=== PATIENT | male | born 1980 | race Caucasian/White ===

== ENCOUNTER 2023-08-17 16:08 | Observation (INO) ==
--- NOTE | 2023-08-17 16:59 | DR.N/VMALE ---
HPI Time Seen Time Seen by Provider: 08/17/23 16:58 Primary Care Physician Primary Care Physician: Neyda Ybarra Complaints Chief Complaint Doctors Comments: 42-year-old male presents for evaluation. Developed illness early this AM, around 0130. Started with several episodes of nausea and vomiting. Was vomiting for several hours.. Took some oral Pepto- Bismol, vomited ground like material shortly thereafter, about 3 minutes later. Was also having several episodes of diarrhea, no black stools noted. Having generalized weakness, no fevers or chills, no URI symptoms. Has been having reflux episodes over the past several weeks, used to be on Nexium in the past. Has not been helped by Prilosec. No history of peptic ulcer disease, does not take nonsteroidal anti-inflammatory meds. Had his gallbladder taken out by Dr. Feng in the past. Having low back discomfort, throbbing headache. Chief Complaint:: Pt c/o vomitting, "I think I'm dehydrated", c/o headache like "my head is about to split wide open". Pt states sx started around 130 this AM. Last time pt vomitted (about an hour ago) he states it was "like coffee deidre unds"; he called PCP ofc and was advised to come to ER d/t "could be internal bleeding". Pt states he had diarrhea last night, none today. Pt states he has LLQ abdominal pain Self Treatment fo Chief Complaint: tylenol early this AM for headache COVID-19 Coronavirus risk:travel/contact w/high risk person: No Has patient experienced Coronavirus symptoms: No Reviewed Nurses Notes Reviewed: Yes Source History Provided: Patient Mode of Arrival Mode of Arrival: Ambulatory Timing Onset of Chief Complaint: 08/17/23 PMH PMH Past Medical History: No Past Surgical History: Yes Surgical History: Cholecystectomy and Ortho Surgery Family History History of Family Medical Conditions: Yes Family Medical History: [place] Social History Does patient currently use any type of tobacco product: No Does any household member use tobacco: No Alcohol Use: None Do you use any recreational Drugs:: No Lives With: Spouse and Family Lives Where: Home Travel Risk Coronavirus risk:travel/contact w/high risk person: No Has patient experienced Coronavirus symptoms: No Infectious screening Have you traveled outside the country in the last 6 months?: No Isolation: Standard ROS Review of Systems Constitutional: Weakness Eyes: No Symptoms Reported ENTM: No Symptoms Reported Respiratoy: No Symptoms Reported Cardiovascular: No Symptoms Reported Gastrointestinal/Abdominal: See HPI Genitourinary: No Symptoms Reported Neurological: Headache Musculoskeletal: Back Pain Integumentary: No Symptoms Reported Hematologic/Lymphatic: No Symptoms Reported All Other Systems: Reviewed and Negative PE Vital Signs Vitals: Vital Signs Temperature 98.1 F Pulse Rate 95 Respiratory Rate 20 Respiratory Rate 18 Blood Pressure 132/77 O2 Sat by Pulse Oximetry 95 General General Appearance: Alert and In No Apparent Distress Eyes Eye exam: PERRL and EOMI ENT ENT Exam: Normal Oropharynx and Mucous Membranes Moist Neck Neck Exam: Normal Inspection Respiratory Respiratory Exam: Normal Lung Sounds Bilat; negative Accessory Muscle Use or Respiratory Distress Cardiovascular Cardiovascular Exam: Regular Rate, Normal Rhythm and Normal Heart Sounds Abdominal Exam Abdominal Exam: Normal Bowel Sounds and Soft; negative Tenderness, Guarding or Rebound Extremities Extremities Exam: Normal Inspection Back Back Exam: Normal Inspection Neurologic Neurological Exam: Alert, Oriented X3 and CN II-XII Intact; negative Motor Sensory Deficit Skin Skin Exam: Warm and Dry COURSE Treatment Treatment: 42-year-old male with vomiting diarrhea since early this a.m.. Past episode of vomiting was coffee-ground like material. Took Pepto-Bismol p.o. shortly prior to that episode. Workup initiated. Patient given IV fluids, IV Protonix/Zofran. Complaining of headache, given IV Dilaudid, 1 mg. 1839 -Labs acceptable.. pt resting after the medicine, no active vomiting here. Pt was seen by Dr Ford here in the ER. He will admit the pt, and plan on EGD in the am. ROR Labs Reviewed Laboratory Results Reviewed?: Yes 08/17/23 17:12 08/17/23 17:12 Laboratory: WBC 9.8 X10^3/uL (3.6-10.0) 08/17/23 17:12 RBC 5.39 X10^6/uL (4.7-6.0) 08/17/23 17:12 Hgb 15.9 g/dL (13.5-18.0) 08/17/23 17:12 Hct 46.5 % (42.0-54.0) 08/17/23 17:12 MCV 86.3 fL (80.0-100.0) 08/17/23 17:12 MCH 29.4 pg (27.0-34.0) 08/17/23 17:12 MCHC 34.1 g/dL (33.0-35.0) 08/17/23 17:12 RDW 13.9 % (11.6-16.5) 08/17/23 17:12 Plt Count 199 X10^3/uL (150.0-450.0) 08/17/23 17:12 MPV 8.4 fL (7.4-11.0) 08/17/23 17:12 Neut % (Auto) 88.0 % (42.0-75.0) H 08/17/23 17:12 Lymph % (Auto) 7.0 % (21.0-51.0) L 08/17/23 17:12 [place] % (Auto) 4.8 % (0.0-13.0) 08/17/23 17:12 Eos % (Auto) 0.1 % (0.9-2.9) L 08/17/23 17:12 Baso % (Auto) 0.1 % (0.2-1.0) L 08/17/23 17:12 Neut # (Auto) 8.6 x10^3/uL (2.2-4.8) H 08/17/23 17:12 Lymph # (Auto) 0.7 X10^3/uL (1.3-2.9) L 08/17/23 17:12 [place] # (Auto) 0.5 x10^3/uL (0.3-0.8) 08/17/23 17:12 Eos # (Auto) 0.0 x10^3/uL (0.0-0.2) 08/17/23 17:12 Baso # (Auto) 0.0 X10^3/uL (0.0-0.1) 08/17/23 17:12 Absolute Nucleated RBC 0.1 /100WBC 08/17/23 17:12 PT 15.1 SECONDS (11.8-14.3) 08/17/23 17:12 INR Target Range - 08/17/23 17:12 INR 1.21 (0.8-1.3) 08/17/23 17:12 APTT 25.8 SECONDS (22.9-36.5) 08/17/23 17:12 PTT Comment - 08/17/23 17:12 Sodium 138 mmol/L (136-145) 08/17/23 17:12 Corrected Sodium TNP 08/17/23 17:12 Potassium 4.2 mmol/L (3.5-5.1) 08/17/23 17:12 Chloride 100 mmol/L (98-107) 08/17/23 17:12 Carbon Dioxide 27.3 mmol/L (21-32) 08/17/23 17:12 BUN 18 mg/dL (7-18) 08/17/23 17:12 Creatinine 1.41 mg/dL (0.70-1.30) H 08/17/23 17:12 Est GFR (MDRD) Af Amer > 60 (>60) 08/17/23 17:12 Est GFR (MDRD) Non-Af 59 (>60) 08/17/23 17:12 Glucose 101 mg/dL (65-99) H 08/17/23 17:12 Calcium 8.9 mg/dL (8.5-10.1) 08/17/23 17:12 Corrected Calcium TNP 08/17/23 17:12 Total Bilirubin 1.00 mg/dL (0.2-1.0) 08/17/23 17:12 AST 31 Units/L (15-37) 08/17/23 17:12 ALT 39 Units/L (12-78) 08/17/23 17:12 Alkaline Phosphatase 99 Units/L (46-116) 08/17/23 17:12 Total Protein 8.3 g/dL (6.4-8.2) H 08/17/23 17:12 Albumin 3.9 g/dL (3.4-5.0) 08/17/23 17:12 Globulin 4.4 g/dL (2.5-4.5) 08/17/23 17:12 Albumin/Globulin Ratio 0.9 Ratio (1.1-2.1) L 08/17/23 17:12 Lipase 32 Units/L (16-77) 08/17/23 17:12 Specimen Type Clean catch urine 08/17/23 16:35 Urine Color Dark yellow (YELLOW) 08/17/23 16:35 Urine Appearance Clear (CLEAR) 08/17/23 16:35 Urine pH 6.0 (5.0 - 8.0) 08/17/23 16:35 Ur Specific [place] 1.020 (1.000-1.030) 08/17/23 16:35 Urine Protein 2+ (NEGATIVE) 08/17/23 16:35 Urine Glucose (UA) Negative (NEGATIVE) 08/17/23 16:35 Urine Ketones Negative (NEGATIVE) 08/17/23 16:35 Urine Blood Negative (NEGATIVE) 08/17/23 16:35 Urine Nitrite Negative (NEGATIVE) 08/17/23 16:35 Urine Bilirubin Negative (NEGATIVE) 08/17/23 16:35 Urine Urobilinogen 1+ (NORMAL) 08/17/23 16:35 Ur Leukocyte Esterase 1+ (NEGATIVE) 08/17/23 16:35 Urine RBC 0-2 /HPF (0-3) 08/17/23 16:35 Urine WBC 3-5 /HPF (0-5) 08/17/23 16:35 Ur Squamous Epith Cells Moderate /HPF (NEGATIVE) 08/17/23 16:35 Urine Bacteria 1+ /HPF (NEGATIVE) 08/17/23 16:35 Urine Mucus Moderate /HPF (NEGATIVE) 08/17/23 16:35 Ur Culture Indicated? No/not indicated 08/17/23 16:35 SARS-CoV-2 (PCR) Negative (NEGATIVE) 08/17/23 17:29 Influenza Type A (PCR) Negative (NEGATIVE) 08/17/23 17:29 Influenza Type B (PCR) Negative (NEGATIVE) 08/17/23 17:29 RSV (PCR) Negative (NEGATIVE) 08/17/23 17:29 Labs acceptable Opioid Opioid Risk Tool Age (Jose box if 16-45): Yes History of Preadolescent Sexual Abuse: No Total: 1 Total Score Risk Category: Low Risk Copyright: Can predicting aberrant behaviors Discharge Plan Diagnosis Discharge Problem: Hematemesis Discharge Plan Patient Disposition: 09 ADMITTED INPATIENT Condition: Stable Prescriptions: No Action [facility] Concerns: Post Hospitalization: new medications and changes needed to prevent readmission or further decline. Pt educated and given instructions on all concerns. Plan of Treatment: Continue with present treatment and follow up plan. Pt is to keep follow up appointment as instructed and take medications as ordered. Orders to Discharge Patient Discharge Orders: Transfer (Routine); Ordered 08/17/23 Ordered By: Manav Jett Follow ups/Referrals Follow ups/Referrals: Chi Ybarra [Primary Care Provider] - 3 days
[2023-08-17] MEDS: NS 1,000 ML IV 1,000 ML IV ONE (17:09)
[2023-08-17] MEDS: ZOFRAN INJ 4 MG VIAL IVP ONE (17:10)
[2023-08-17] MEDS: PROTONIX INJ 40 MG VIAL IVP ONE (17:10)
[2023-08-17] MEDS: DILAUDID INJ IVP ONE ×2 (17:22→17:23)
[2023-08-17 17:29] LABS: BASOPHILS % (AUTO) 0.1 % (0.2-1.0); EOSINOPHILS % (AUTO) 0.1 % (0.9-2.9); HEMATOCRIT 46.5 % (42.0-54.0); HEMOGLOBIN 15.9 g/dL (13.5-18.0); LYMPHOCYTES # (AUTO) 0.7 X10^3/uL (1.3-2.9); MEAN CORPUSCULAR HEMOGLOBIN 29.4 pg (27.0-34.0); MEAN CORPUSCULAR HGB CONC 34.1 g/dL (33.0-35.0); MEAN CORPUSCULAR VOLUME 86.3 fL (80.0-100.0); MEAN PLATELET VOLUME 8.4 fL (7.4-11.0); MONOCYTES # (AUTO) 0.5 x10^3/uL (0.3-0.8); MONOCYTES % (AUTO) 4.8 % (0.0-13.0); NEUTROPHILS # (AUTO) 8.6 x10^3/uL (2.2-4.8); PLATELET COUNT 199 X10^3/uL (150.0-450.0); RED BLOOD COUNT 5.39 X10^6/uL (4.7-6.0); RED CELL DISTRIBUTION WIDTH 13.9 % (11.6-16.5); WHITE BLOOD COUNT 9.8 X10^3/uL (3.6-10.0)
[2023-08-17 17:35] LABS: BILIRUBIN,URINE NEGATIVE (NEGATIVE); BLOOD/HEMOGLOBIN,URINE NEGATIVE (NEGATIVE); GLUCOSE, URINE NEGATIVE (NEGATIVE); KETONES,URINE NEGATIVE (NEGATIVE); LEUKOCYTE ESTERASE ,URINE 1+ (NEGATIVE); NITRITES,URINE NEGATIVE (NEGATIVE); PROTEIN,URINE 2+ (NEGATIVE); UROBILINOGEN,URINE 1+ (NORMAL)
[2023-08-17 17:40] LABS: INR 1.21 (0.8-1.3)
[2023-08-17 17:44] LABS: ALANINE AMINOTRANSFERASE 39 Units/L (12-78); ALBUMIN 3.9 g/dL (3.4-5.0); ALKALINE PHOSPHATASE 99 Units/L (46-116); ASPARTATE AMINO TRANSFERASE 31 Units/L (15-37); BLOOD UREA NITROGEN 18 mg/dL (7-18); CALCIUM 8.9 mg/dL (8.5-10.1); CARBON DIOXIDE 27.3 mmol/L (21-32); CHLORIDE 100 mmol/L (98-107); CREATININE 1.41 mg/dL (0.70-1.30); GLUCOSE 101 mg/dL (65-99); LIPASE 32 Units/L (16-77); POTASSIUM 4.2 mmol/L (3.5-5.1); SODIUM 138 mmol/L (136-145); TOTAL PROTEIN 8.3 g/dL (6.4-8.2); eGFR NON BLACK RACES 59 (>60)
[2023-08-17 17:54] LABS: APPEARANCE,URINE CLEAR (CLEAR); COLOR,URINE DARK YELLOW (YELLOW)
[2023-08-17 17:55] LABS: BACTERIA,URINE 1+ /HPF (NEGATIVE); RBC,URINE 0-2 /HPF (0-3); SQUAMOUS EPITHELIAL CELL,UR MODERATE /HPF (NEGATIVE)
[2023-08-17] MEDS ORDERED: ZOFRAN INJ 4 MG VIAL IVP PRN (20:07)
[2023-08-17] MEDS ORDERED: CONSULT PHARMACY - POTASSIUM & MAGNESIUM XX SCH (20:07)
[2023-08-17 20:21] VITALS: BMI 24.9
[2023-08-17] MEDS: D5 1/2 NS 1,000 ML 1,000 ML IV SCH (20:38)
[2023-08-17] MEDS ORDERED: TYLENOL 325 MG TAB PO ONE (22:14)
[2023-08-17] MEDS: TYLENOL 325 MG TAB PO PRN (22:19)
[2023-08-18 05:06] LABS: BASOPHILS % (AUTO) 0.3 % (0.2-1.0); EOSINOPHILS % (AUTO) 0.2 % (0.9-2.9); HEMATOCRIT 40.3 % (42.0-54.0); LYMPHOCYTES # (AUTO) 0.9 X10^3/uL (1.3-2.9); LYMPHOCYTES % (AUTO) 16.7 % (21.0-51.0); MEAN CORPUSCULAR HEMOGLOBIN 29.8 pg (27.0-34.0); MEAN CORPUSCULAR HGB CONC 34.6 g/dL (33.0-35.0); MEAN CORPUSCULAR VOLUME 86.2 fL (80.0-100.0); MEAN PLATELET VOLUME 8.7 fL (7.4-11.0); MONOCYTES # (AUTO) 0.5 x10^3/uL (0.3-0.8); MONOCYTES % (AUTO) 8.8 % (0.0-13.0); NEUTROPHILS # (AUTO) 3.9 x10^3/uL (2.2-4.8); PLATELET COUNT 175 X10^3/uL (150.0-450.0); RED BLOOD COUNT 4.68 X10^6/uL (4.7-6.0); WHITE BLOOD COUNT 5.3 X10^3/uL (3.6-10.0)
[2023-08-18 05:17] LABS: ALANINE AMINOTRANSFERASE 246 Units/L (12-78); ALBUMIN 3.1 g/dL (3.4-5.0); ALKALINE PHOSPHATASE 114 Units/L (46-116); ASPARTATE AMINO TRANSFERASE 162 Units/L (15-37); BLOOD UREA NITROGEN 16 mg/dL (7-18); CALCIUM 8.1 mg/dL (8.5-10.1); CARBON DIOXIDE 26.8 mmol/L (21-32); CHLORIDE 101 mmol/L (98-107); COR CA(FOR HYPOALB) 8.8 mg/dL (8.5-10.1); CREATININE 1.21 mg/dL (0.70-1.30); GLUCOSE 107 mg/dL (65-99); POTASSIUM 3.6 mmol/L (3.5-5.1); SODIUM 138 mmol/L (136-145); TOTAL PROTEIN 6.9 g/dL (6.4-8.2); eGFR NON BLACK RACES > 60 (>60)
[2023-08-18 05:43] LABS: HEMOGLOBIN 13.9 g/dL (13.5-18.0)
[2023-08-18] MEDS ORDERED: CONSULT PHARMACY - POTASSIUM & MAGNESIUM XX SCH (06:00)
[2023-08-18] MEDS: ZOFRAN INJ 4 MG VIAL ONE (06:56)
[2023-08-18] MEDS: PROTONIX INJ 40 MG VIAL ONE (06:56)
[2023-08-18] MEDS: K-DUR TAB 20 MEQ PO SCH (09:46)
[2023-08-18] MEDS: MAG-OX TAB PO SCH (09:46)
[2023-08-18] MEDS: LR 1,000 ML IV 1,000 ML IV ONE (10:48)
[2023-08-18] MEDS: DIPRIVAN VIAL 20 ML ONE (10:58)
[2023-08-18] MEDS: PROTONIX INJ 40 MG VIAL IVP SCH (11:35)
[2023-08-18] MEDS: CARAFATE PO SCH (11:36)
[2023-08-18 12:18] VITALS: TEMP 97.6
[2023-08-18 12:50] VITALS: BP 116/79; PULSE 55; RESP 17; O2SAT 98
== END 2023-08-18 13:10 | disposition home or self-care (01) ==
LOC: ICU 16:08 → ER 16:08 → ICU 19:39 → MED/SURG 08-18 04:20
PROVIDERS: ADMIT Surgery; ATTEND Surgery
DX: K21.00 Gastro-esophageal reflux disease with esophagitis, without bleeding; K92.0 Hematemesis; R10.13 Epigastric pain; K29.80 Duodenitis without bleeding; R51.9 Headache, unspecified; Z20.822 Contact with and (suspected) exposure to COVID-19; K44.9 Diaphragmatic hernia without obstruction or gangrene; M54.59 Other low back pain; K22.2 Esophageal obstruction; K25.9 Gastric ulcer, unspecified as acute or chronic, without hemorrhage or perforation; R19.7 Diarrhea, unspecified